=== PATIENT | male | born 1960 ===

== ENCOUNTER 2022-09-06 11:06 | Emergency (ER) | payer OTHER ==
[~2022-09-06] VITALS: Ht 167.6 cm; Wt 77.3 kg
[2022-09-06] MEDS ORDERED: METF-1211 PO (11:11)
[2022-09-06] MEDS ORDERED: DAPA10TA PO (11:11)
[2022-09-06 11:37] VITALS: BP 144/83
[2022-09-06] MEDS ORDERED: FLUORESCEIN SODIUM 1 MG STRIP OS ONE (12:15)
[2022-09-06] MEDS ORDERED: PROPARACAINE HCL 0.5% 15 ML OPHTHALMIC SOLUTION OS ONE (12:15)
[2022-09-06] MEDS ORDERED: CIPR2.5D17 OS (12:27)
== END 2022-09-06 12:47 | disposition home or self-care (01) ==
LOC: EMS 11:10
DX: H16.001 Unspecified corneal ulcer, right eye (principal); E11.9 Type 2 diabetes mellitus without complications; H54.61 Unqualified visual loss, right eye, normal vision left eye
CPT/HCPCS: 82962; 99283